=== PATIENT | female | born 1985 | race Caucasian/White ===

== ENCOUNTER 2016-11-06 11:40 | Outpatient (CLI) | payer BC | END 2016-11-06 11:41 | disposition home or self-care (01) | DX: M25.562 Pain in left knee (principal); M25.561 Pain in right knee; M79.675 Pain in left toe(s); M19.072 Primary osteoarthritis, left ankle and foot ==

== ENCOUNTER 2017-07-22 15:23 | Outpatient (CLI) | payer BC ==
[2017-07-22 13:18] LABS: BASOPHILS % (AUTO) 0.5 %; EOSINOPHILS # (AUTO) 0.1 10^3/uL (0.0-0.7); EOSINOPHILS % (AUTO) 1.2 %; HCT - HEMATOCRIT 38.8 % (37.0-47.0); HGB - HEMOGLOBIN 13.3 g/dL (12.0-16.0); LYMPHOCYTES # (AUTO) 1.5 10^3/uL (1.5-3.5); LYMPHOCYTES % (AUTO) 20.5 %; MEAN CORPUSCULAR HEMOGLOBIN 27.7 pg (27.0-31.0); MEAN CORPUSCULAR HGB CONC 34.2 g/dL (32.0-36.0); MEAN PLATELET VOLUME 9.1 fL (7.9-10.8); MONOCYTES # (AUTO) 0.5 10^3/uL (0.0-1.0); MONOCYTES % (AUTO) 7.2 %; NEUTROPHILS # (AUTO) 5.3 10^3/uL (1.5-6.6); NEUTROPHILS % (AUTO) 70.6 %; RED BLOOD COUNT 4.79 10^6/uL (4.20-5.40); RED CELL DISTRIBUTION WIDTH 12.5 % (12.0-15.0); UNCORRECTED WHITE BLOOD COUNT 7.5 x10^3/uL; WHITE BLOOD COUNT 7.5 x10^3/uL (4.8-10.8)
[2017-07-22 13:39] LABS: ALBUMIN/GLOBULIN RATIO 1.4 (1.0-2.2); BILIRUBIN,TOTAL 0.8 mg/dL (0.2-1.0); BUN - BLOOD UREA NITROGEN 14 mg/dL (6-20); CALCIUM 8.6 mg/dL (8.5-10.3); CARBON DIOXIDE - CO2 21 mmol/L (21-32); CHLORIDE 104 mmol/L (101-111); CHOL/HDL RATIO 4.1 (<4.4); CHOLESTEROL 155 mg/dL; CREATININE 0.8 mg/dL (0.4-1.0); GFR - MDRD 84 (>89); GLUCOSE 98 mg/dL (70-100); HDL CHOLESTEROL 38 mg/dL; LDL/HDL RATIO 2.7 (<4.4); POTASSIUM 3.7 mmol/L (3.5-5.0); SODIUM 134 mmol/L (135-145); TOTAL PROTEIN 7.1 g/dL (6.7-8.2); TRIGLYCERIDES 71 mg/dL; VLDL CHOLESTEROL 14 mg/dL
== END 2017-07-22 15:24 | disposition home or self-care (01) ==
LOC: LAB.N 15:23
PROVIDERS: ATTEND Family Medicine
DX: E66.9 Obesity, unspecified (principal); Z02.1 Encounter for pre-employment examination
CPT/HCPCS: 36415; 80053; 80061; 84443; 85025

== ENCOUNTER 2018-03-27 13:45 | Outpatient (CLI) | payer BC, MEDICAID | END 2018-03-27 13:46 | disposition home or self-care (01) | LOC: LAB.N 13:45 | PROVIDERS: ATTEND Nurse Practitioner | DX: Z33.1 Pregnant state, incidental (principal) | CPT/HCPCS: 36415; 84702 ==

== ENCOUNTER 2018-03-30 08:00 | Outpatient (CLI) | END 2018-03-30 08:01 | disposition home or self-care (01) ==

== ENCOUNTER 2018-04-07 14:12 | Outpatient (CLI) | payer MEDICAID ==
[2018-04-07 15:16] LABS: MUDS CUTOFF CONCENTRATIONS CUTOFF CONC BELOW:
[2018-04-07 15:50] LABS: AMPHETAMINE SCREEN,URINE NEGATIVE (NEGATIVE); BENZODIAZEPINES SCREEN, URINE NEGATIVE (NEGATIVE); COCAINE SCREEN URINE NEGATIVE (NEGATIVE); METHADONE SCREEN, URINE NEGATIVE (NEGATIVE); METHAMPHETAMINES SCREEN, URINE NEGATIVE (NEGATIVE); OPIATE SCREEN, URINE NEGATIVE (NEGATIVE); OXYCODONE SCREEN, URINE NEGATIVE (NEGATIVE); PROPOXYPHENE SCREEN, URINE NEGATIVE (NEGATIVE); TRICYCLIC ANTIDEPRESSANT,URINE NEGATIVE (NEGATIVE)
== END 2018-04-07 14:13 | disposition home or self-care (01) ==
LOC: LAB.R 14:12
PROVIDERS: ATTEND Nurse Practitioner Obstetrics & Gynecology
DX: Z36.9 Encounter for antenatal screening, unspecified (principal); Z11.3 Encounter for screening for infections with a predominantly sexual mode of transmission
CPT/HCPCS: 80306; 87491; 87591

== ENCOUNTER 2018-04-07 14:24 | Outpatient (CLI) | payer MEDICAID ==
[2018-04-07 14:54] LABS: BASOPHILS % (AUTO) 0.2 %; EOSINOPHILS # (AUTO) 0.1 10^3/uL (0.0-0.7); EOSINOPHILS % (AUTO) 0.6 %; HGB - HEMOGLOBIN 12.9 g/dL (12.0-16.0); LYMPHOCYTES # (AUTO) 1.7 10^3/uL (1.5-3.5); MEAN CORPUSCULAR HEMOGLOBIN 27.8 pg (27.0-31.0); MEAN CORPUSCULAR HGB CONC 33.6 g/dL (32.0-36.0); MEAN CORPUSCULAR VOLUME 82.6 fL (81.0-99.0); MEAN PLATELET VOLUME 9.3 fL (7.9-10.8); MONOCYTES # (AUTO) 0.5 10^3/uL (0.0-1.0); MONOCYTES % (AUTO) 4.8 %; NEUTROPHILS # (AUTO) 8.8 10^3/uL (1.5-6.6); NEUTROPHILS % (AUTO) 79.4 %; PLT - PLATELET COUNT 316 10^3/uL (130-450); RED BLOOD COUNT 4.65 10^6/uL (4.20-5.40); RED CELL DISTRIBUTION WIDTH 12.7 % (12.0-15.0); WHITE BLOOD COUNT 11.1 x10^3/uL (4.8-10.8)
[2018-04-07 15:19] LABS: BILIRUBIN,URINE NEGATIVE (NEGATIVE); GLUCOSE, URINE (UA) NEGATIVE (NEGATIVE); KETONES,URINE (UA) NEGATIVE (NEGATIVE); LEUKOCYTE ESTERASE, URINE NEGATIVE (NEGATIVE); NITRITE,URINE NEGATIVE (NEGATIVE); OCCULT BLOOD,URINE TRACE-LYSE (NEGATIVE); PH,URINE 6.5 PH (5.0-7.5); PROTEIN,URINE NEGATIVE (NEGATIVE); UROBILINOGEN,URINE 0.2 (NORMAL) E.U./dL (NORMAL)
[2018-04-07 15:25] LABS: CLARITY,URINE CLEAR (CLEAR)
[2018-04-07 15:49] LABS: BACTERIA,URINE Many /HPF (None Seen); RBC,URINE 0-5 /HPF (0-5); SQUAMOUS EPITHELIAL CELL,UR MANY Squamous (<= Few)
[2018-04-09 11:44] LABS: HEPATITIS B SURFACE ANTIGEN NON-REACTIVE (NON-REACTIVE); HEPATITIS C ANTIBODY NON-REACTIVE (NON-REACTIVE)
[2018-04-09 15:15] LABS: HIV AG/AB 4TH GEN NON-REACTIVE (NON-REACTIVE)
== END 2018-04-07 14:25 | disposition home or self-care (01) ==
LOC: LAB 14:24
PROVIDERS: ATTEND Nurse Practitioner Obstetrics & Gynecology
DX: Z36.9 Encounter for antenatal screening, unspecified (principal); Z11.3 Encounter for screening for infections with a predominantly sexual mode of transmission
CPT/HCPCS: 36415; 80306; 81001; 81599; 85025; 86592; 86762; 86803; 86850; 86900; 86901; 87340; 87389; 87491; 87591

== ENCOUNTER 2018-06-15 11:52 | Outpatient (CLI) | payer MEDICAID ==
--- NOTE | 2018-06-16 10:28 | Ultrasound Report ---
Reason: ENCOUNTER FOR SCREENING,UNSPECIFIED Procedure Date: 06/15/2018 Accession Number: [id number] / [id number] Procedure: US - OB Detailed Eval CPT Code: FULL RESULT: EXAM: COMPLETE OBSTETRICAL ULTRASOUND EXAM DATE: 06/15/2018 02:12 PM. CLINICAL HISTORY: OB detailed evaluation. anatomic survey. LMP is stated as 01/27/2018 but there is indication that it may be uncertain. COMPARISON: None. TECHNIQUE: Real-time sonographic evaluation of the fetus performed by the member services coordinator. Multiple employee representative static images were saved for review. DATING: Established EGA 19 weeks 6 days with ALBAN 11/03/2018 based on LMP. EGA 23 weeks 2 days with ALBAN 10/10/2018 based on the current ultrasound. GENERAL EVALUATION Bain . Cardiac activity: 142 bpm. movement: Visualized. Presentation: Variable. Placenta: Anterior, wrapping to the right. position. No evidence for previa. Umbilical cord: 3 vessel cord. Central placental cord origin (2.1 cm from the placental margin). Amniotic fluid: Normal, ANDRES 13.3 cm. MVP 4.5 cm. BIOMETRY Bi-Parietal Diameter (BPD): 5.5 cm, 22 weeks 5 days Head Circumference (HC): 20.8 cm, 22 weeks 6 days Abdominal Circumference (AC): 19.1 cm, 23 weeks 6 days Femur Length (FL): 4.3 cm, 23 weeks 6 days FL/HC 20.5 (16.9-19.7) HC/AC 1.09 (1.09-1.26) Estimated Weight: 620 gm, greater than 97th percentile for LMP. ANATOMY The intracranial structures, profile, face/nose/lips, spine, 4 chamber heart and outflow tracts, stomach, abdominal wall and cord insertion, diaphragm, kidneys, bladder, and extremities were visualized and demonstrate no abnormality. MATERNAL STRUCTURES Uterus: Unremarkable. Cervix: Long and closed. Transabdominal length 4.6 cm. Right ovary/adnexa: Unremarkable. Left ovary/adnexa: Unremarkable. Free fluid: None. IMPRESSION: 1. Bain live intrauterine with gestational age 23 weeks 2 days and ALBAN 10/10/2018 based on current ultrasound which is discordant with the clinical estimated ALBAN of 11/03/2018 based on the provided LMP. However, there is suggestion that the LMP may be uncertain. Clinical correlation is recommended. 2. Mildly increased FL/HC and borderline decreased HC/AC. 3. Normal anatomic survey. No anatomic abnormalities are detected at this time. RADIA
== END 2018-06-15 11:53 | disposition home or self-care (01) ==
LOC: DI 11:52
PROVIDERS: ATTEND Nurse Practitioner Obstetrics & Gynecology
DX: Z36.9 Encounter for antenatal screening, unspecified (principal)
CPT/HCPCS: 76811

== ENCOUNTER 2018-07-14 11:47 | Outpatient (CLI) | payer MEDICAID ==
[2018-07-14 13:48] LABS: HGB - HEMOGLOBIN 12.3 g/dL (12.0-16.0); MEAN CORPUSCULAR HEMOGLOBIN 28.4 pg (27.0-31.0); MEAN CORPUSCULAR VOLUME 83.4 fL (81.0-99.0); MEAN PLATELET VOLUME 9.1 fL (7.9-10.8); RED BLOOD COUNT 4.33 10^6/uL (4.20-5.40); RED CELL DISTRIBUTION WIDTH 13.2 % (12.0-15.0)
== END 2018-07-14 11:48 | disposition home or self-care (01) ==
LOC: LAB 11:47
PROVIDERS: ATTEND Nurse Practitioner Obstetrics & Gynecology
DX: Z36.9 Encounter for antenatal screening, unspecified (principal)
CPT/HCPCS: 36415; 82950; 85027; 86850

== ENCOUNTER 2018-07-24 07:52 | Outpatient (CLI) | payer MEDICAID | END 2018-07-24 07:53 | disposition home or self-care (01) | LOC: LAB 07:52 | PROVIDERS: ATTEND Registered Nurse | DX: R73.02 Impaired glucose tolerance (oral) (principal) | CPT/HCPCS: 36415; 82951; 82952 ==

== ENCOUNTER 2018-08-15 19:25 | Inpatient (IN) | payer MEDICAID ==
[2018-08-15 19:52] LABS: BILIRUBIN,URINE NEGATIVE (NEGATIVE); GLUCOSE, URINE (UA) NEGATIVE (NEGATIVE); KETONES,URINE (UA) NEGATIVE (NEGATIVE); LEUKOCYTE ESTERASE, URINE NEGATIVE (NEGATIVE); NITRITE,URINE NEGATIVE (NEGATIVE); OCCULT BLOOD,URINE NEGATIVE (NEGATIVE); PROTEIN,URINE NEGATIVE (NEGATIVE); UROBILINOGEN,URINE 0.2 (NORMAL) E.U./dL (NORMAL)
[2018-08-15 20:00] LABS: CLARITY,URINE CLEAR (CLEAR)
[2018-08-15] MEDS ORDERED: TERBUTALINE 1 MG/ML VIAL SUBQ ONE ×2 (20:05→22:43)
[2018-08-15] MEDS ORDERED: MORPHINE 10 MG/ML VIAL IVP ONE (20:18)
[2018-08-15] MEDS ORDERED: MORPHINE 10 MG/ML VIAL IM ONE (20:35)
[2018-08-15] MEDS ORDERED: MORPHINE 10 MG/ML VIAL IM SCH (20:38)
[2018-08-15 20:39] LABS: RUPTURE OF MEMBRANES PLUS NEGATIVE (NEGATIVE)
[2018-08-15] MEDS ORDERED: LACTATED RINGERS 1,000 ML IV SCH (21:11)
[2018-08-15] MEDS ORDERED: SODIUM CHLORIDE FLUSH 0.9% 10 ML SYRINGE ONE (21:25)
--- NOTE | 2018-08-15 22:24 | Ultrasound Report ---
Reason: check cervical length Procedure Date: 08/15/2018 Accession Number: [id number] / [id number] Procedure: US - OB Transvaginal CPT Code: FULL RESULT: EXAM: OB TRANSVAGINAL EXAM DATE: 08/15/2018 10:03 PM. CLINICAL HISTORY: Check cervical length. COMPARISONS: OB DETAILED EVAL 06/15/2018 12:07 PM. TECHNIQUE: Transvaginal ultrasound examination with static image documentation. CLINICAL DATES: Establish dates: EGA 32 weeks 0 days with ALBAN 10/10/2018. ASSESSMENT: Single living intrauterine fetus in cephalic presentation. heart rate 137 bpm. The cervix appears long and closed measuring 4.6 cm. IMPRESSION: 1. Long and closed cervix measuring 4.6 cm. RADIA
[2018-08-16 00:21] LABS: BASOPHILS % (AUTO) 0.1 %; HGB - HEMOGLOBIN 10.9 g/dL (12.0-16.0); LYMPHOCYTES # (AUTO) 0.8 10^3/uL (1.5-3.5); LYMPHOCYTES % (AUTO) 4.1 %; MEAN CORPUSCULAR HGB CONC 34.8 g/dL (32.0-36.0); MEAN CORPUSCULAR VOLUME 83.3 fL (81.0-99.0); MEAN PLATELET VOLUME 8.7 fL (7.9-10.8); MONOCYTES # (AUTO) 0.8 10^3/uL (0.0-1.0); NEUTROPHILS # (AUTO) 18.3 10^3/uL (1.5-6.6); NEUTROPHILS % (AUTO) 91.8 %; PLT - PLATELET COUNT 259 10^3/uL (130-450); RED BLOOD COUNT 3.76 10^6/uL (4.20-5.40); RED CELL DISTRIBUTION WIDTH 13.1 % (12.0-15.0)
[2018-08-16 00:29] LABS: PT - PROTHROMBIN TIME 11.4 secs (9.9-12.6)
[2018-08-16 00:34] LABS: BILIRUBIN,TOTAL 0.6 mg/dL (0.2-1.0); CALCIUM 8.8 mg/dL (8.5-10.3); CREATININE 0.7 mg/dL (0.4-1.0); TOTAL PROTEIN 6.1 g/dL (6.7-8.2)
[2018-08-16] MEDS ORDERED: CITRIC ACID/SODIUM CITRATE 15 ML UDC PO ONE (00:36)
[2018-08-16] MEDS ORDERED: ceFAZolin 2 GM/50 ML 2 GM/50 ML BAG IV STA (00:40)
[2018-08-16] MEDS: CITRIC ACID/SODIUM CITRATE 15 ML UDC PO ONE ×2 (00:45→09:46)
[2018-08-16] MEDS ORDERED: LACTATED RINGERS 1,000 ML IV ONE ×2 (00:54→02:00)
--- NOTE | 2018-08-16 01:18 | Ultrasound Report ---
Reason: labor, vaginal bleeding, check placenta Procedure Date: 08/16/2018 Accession Number: [id number] / [id number] Procedure: US - OB Limited CPT Code: FULL RESULT: EXAM: LIMITED OBSTETRICAL ULTRASOUND EXAM DATE: 08/16/2018 12:24 AM. CLINICAL HISTORY: labor, vaginal bleeding, check placenta. Clinical suspicion for placental abruption COMPARISON: OB TRANSVAGINAL 08/15/2018 9:35 PM OB DETAILED EVAL 06/15/2018 12:07 PM. TECHNIQUE: Real-time sonographic evaluation of the fetus performed by the yard goods salesperson. Multiple national account representative static images were saved for review. DATING: Established EGA 32 weeks 0 days with ALBAN 10/10/2018. GENERAL EVALUATION Bain . Cardiac activity: 140 bpm. movement: Visualized. Presentation: Cephalic. Placenta: Fundal position. Amniotic fluid: Normal. ANDRES 10.5 cm. MVP 3.4 cm. MATERNAL STRUCTURES There is a focal heterogeneous structure located at the peripheral placenta and placenta myometrium junction. This structure is partially hyperechoic and partially anechoic, measuring 3.5 x 2.3 x 4.6 cm. Structure was not seen on previous ultrasound images. IMPRESSION: 1. New intraplacental complex structure measuring 3.5 x 2.3 x 4.6 cm which may represent intraplacental hemorrhage or abruption given the clinical findings. 2. Normal amniotic fluid volume with ANDRES 10.5 cm. 3. heart rate 140 bpm. RADIA The above findings were discussed with Ob Nurse by Dr. Bal Amaro at 01:17 hrs on 08/16/18.
[2018-08-16] MEDS ORDERED: SUGAMMADEX 200 MG/2 ML VIAL IVP ONE ×2 (01:33→01:39)
[2018-08-16] MEDS ORDERED: ROCURONIUM 50 MG/5 ML VIAL IVP ONE (01:39)
[2018-08-16] MEDS ORDERED: KETOROLAC 30 MG/ML VIAL IVP ONE (01:39)
[2018-08-16] MEDS ORDERED: MORPHINE 10 MG/ML VIAL IVP ONE (01:39)
[2018-08-16] MEDS ORDERED: PROPOFOL 200 MG/20 ML VIAL IVP ONE (01:39)
[2018-08-16] MEDS ORDERED: METHYLERGONOVINE 0.2 MG/ML AMP IVP ONE (01:39)
[2018-08-16] MEDS ORDERED: ceFAZolin 2 GM/50 ML 2 GM/50 ML BAG IV ONE (01:39)
[2018-08-16] MEDS ORDERED: CARBOPROST TROMETHAMINE 250 MCG/ML AMP IM ONE (01:39)
[2018-08-16] MEDS ORDERED: fentaNYL 100 MCG/2 ML VIAL IVP ONE (01:39)
[2018-08-16] MEDS ORDERED: OXYTOCIN 10 UNIT/ML VIAL IV ONE (01:39)
[2018-08-16] MEDS ORDERED: ONDANSETRON 4 MG/2 ML VIAL IVP ONE (01:39)
[2018-08-16] MEDS ORDERED: SODIUM CHLORIDE FLUSH 0.9% 10 ML SYRINGE ONE (01:44)
[2018-08-16] MEDS ORDERED: DEXTROSE 10% 250 ML IV ONE (01:45)
--- NOTE | 2018-08-16 02:25 | XRAY Report ---
Reason: POST OP Procedure Date: 08/16/2018 Accession Number: [id number] / [id number] Procedure: XR - Abdomen 1 View X-Ray CPT Code: 16763 FULL RESULT: EXAM: ABDOMEN RADIOGRAPHY EXAM DATE: 08/16/2018 02:14 AM. CLINICAL HISTORY: POST OP. COMPARISON: None. TECHNIQUE: 1 view. FINDINGS: Bowel Gas Pattern: Nonspecific. Borderline caliber small bowel loops. Gas and stool in the colon. Other: Wound VAC projecting superior to the right hip. IMPRESSION: 1. Nonspecific gas pattern possibly representing mild ileus. 2. Wound VAC projecting lateral to the right hemipelvis. RADIA
[2018-08-16] MEDS ORDERED: HYDROmorphone 1 MG/ML CARPUJECT ONE ×2 (02:29→03:05)
[2018-08-16] MEDS ORDERED: MIDAZOLAM 2 MG/2 ML VIAL ONE (02:33)
[2018-08-16] MEDS ORDERED: ACETAMINOPHEN 1,000 MG/100 ML 100 ML IV ONE ×2 (02:34→03:20)
[2018-08-16] MEDS ORDERED: OXYTOCIN/SODIUM CHLORIDE 250 ML IV ONE (02:35)
[2018-08-16] MEDS ORDERED: SODIUM CHLORIDE FLUSH 0.9% 10 ML SYRINGE IVP PRN (02:35)
[2018-08-16] MEDS ORDERED: diphenhydrAMINE INJ 50 MG/ML VIAL IVP PRN (02:35)
[2018-08-16] MEDS ORDERED: ONDANSETRON 4 MG/2 ML VIAL IVP PRN (02:35)
--- NOTE | 2018-08-16 02:49 | OPERATIVE REPORT ---
Operative Report - General Admit Date: 08/16/18 Procedure Date: 08/16/18 Planned Procedure: PLTC/S Pre-Op Diagnosis: 32 weeks Abruption Procedure Performed: PLTC/S Post Op Diagnosis: Same - Procedure Note Primary Surgeon: Mike Simmons MD Secondary Surgeon: Aye BETHEA Anesthesia Provider: Kirit Castaneda Anesthesia Technique: General ET tube Pathology: Placenta Estimated Blood Loss (mL): 1,000 Drain/Tube Type: Other (Wound Vac) Complications: Large placental Abruption Live female infant apgars 6/6 - Other Other Information/Narrative: Dictation # [id number] H&P [id number]
[2018-08-16] MEDS ORDERED: IBUPROFEN 800 MG TABLET PO SCH (03:00)
[2018-08-16] MEDS ORDERED: HYDROmorphone PCA 20MG/100ML IV PRN ×4 (03:15→08:05)
--- NOTE | 2018-08-16 03:37 | PREOP HISTORY & PHYSICAL ---
DATE OF SERVICE: 08/16/2018 Physician: Mike Candelario MD IDENTIFICATION: Patient is a 33-year-old primigravida who is noted to be 32 weeks 2 days. I was called to see her because patient had developed bright red vaginal bleeding. This evening, she presented to Labor and Delivery with cramping. She had a UA which was negative, an FFN which was also negative, and an ultrasound which showed a long cervix. Group B strep swabs were taken. However, during her stay here, she developed red vaginal bleeding which was dark in color. This was noted to be fairly large, and she also developed uterine tenderness. An ultrasound felt to show what appeared to be an abruption. For this reason, she was taken for a stat section. It was felt that transfer to another institution via ambulance would not be judicious, and would not be safe for mother and . PAST MEDICAL HISTORY: Patient has migraines. She denies any hypertensive, diabetic, or pulmonary disease. PAST SURGICAL HISTORY: None. ALLERGIES: NONE KNOWN. CURRENT MEDICATIONS: vitamins. HABITS: She denies the use of alcohol, tobacco or street or addictive drugs. SOCIAL HISTORY: Patient is and her spouse is accompanying her at this time. PHYSICAL EXAMINATION GENERAL: Well-developed, well-nourished, white female. She was complaining of pain in the uterus. HEENT: Pupils are equal and round. Extraocular muscles are intact. CARDIOVASCULAR: Regular rate and rhythm. LUNGS: Lung elizondo are clear without rales or wheezes. BACK: There is no spinal or CVA tenderness noted. ABDOMEN: Exam shows a tender uterus, particularly on the lower area, more so on the right. Placenta was noted to be on the right-hand side. PELVIC: Examination revealed a large amount of dark red blood in the vagina. The cervix was felt to be closed. IMPRESSION: Thirty-two weeks 2 days' gestation with what appears to be an abruption. For this reason, she was taken for a stat section. Risks and benefits were explained to patient including those but not limited to bleeding, infection, injury to the pelvic organs which include the uterus, tubes, ovaries, bowel, bladder, and ureters. She is aware of the potential for deep venous thrombosis with pulmonary embolism, as well as postoperative adhesions which could cause pain, bowel obstruction, and infertility. She is also aware of the risk of prematurity and the risks the will be encountering because of this early delivery. TD: 08/16/2018 03:11 AGNES
--- NOTE | 2018-08-16 03:51 | OPERATIVE REPORT ---
DATE OF SERVICE: 08/16/2018 Physician: Mike Candelario MD PREOPERATIVE DIAGNOSES 1. Thirty-two weeks. 2. Placental abruption. POSTOPERATIVE DIAGNOSES 1. Thirty-two weeks. 2. Placental abruption. PROCEDURE: Emergency primary low transverse section. SURGEON: Mike Candelario MD. CAR KNOCKER: Aye Madera CRNA. ANESTHESIA PROVIDER: Kirit Santana MD. ANESTHETIC: General via endotracheal tube. FINDINGS: Live female infant, vertex presentation, nuchal cord x1 loose, vigorous . Evidence of a large retroplacental clot. There was also blood in the abdominal cavity upon entry. The amniotic fluid, however, was clear. PROCEDURE Patient was taken to the operating room and, following prep, endotracheal anesthesia was administered and then the patient was draped in the usual fashion. A Pfannenstiel incision was carried down through subcutaneous tissue to the fascia. The fascia was incised transversely then using both blunt and sharp dissection, it was freed of the rectus abdominis and pyramidalis. At this point, the rectus was split along the midline, and the peritoneum was entered high. Care was taken to avoid any injury to the infant. The incision was carried superior and inferior with Metzenbaum scissors. A bladder flap was then developed using both blunt and sharp dissection. A low transverse uterine incision was accomplished utilizing a #10 blade and bandage scissors and the finger-spread technique. Clear amniotic fluid was encountered. The head of the infant was noted to have a nuchal cord x1. It was delivered easily. The remainder of the infant was delivered without incident. The cord was then doubly clamped and divided, and the was handed to the nursery team that was standing by. A segment of cord was clamped and then set aside for cord blood gases. At this point, the placenta was delivered, and there was evidence of a large retroplacental clot. This was approximately 40% of the placenta. The uterus was then cleansed in internal portion, following wrapping it with a moist lap. Cervix was dilated with a ring forceps, and then the low transverse uterine incision was closed utilizing 0 Vicryl in a running locking suture with an imbricating layer of 0 Vicryl. There was one single area in the midline which was noted to be bleeding; this was treated with a dkegtp-tw-kuozm of #0 Vicryl. The incision appeared to be clean and dry at this time. The uterus was tipped forward and suctioned, then irrigated. The estimated blood loss was noted to be 1000 mL. The tubes and ovaries appeared to be free of disease. The gutters were irrigated, and no further clot or bleeding was noted. The peritoneum was closed utilizing 2-0 Vicryl, the rectus was reapproximated with mewlfb-it-secyyo of 2-0 Vicryl. Subcutaneous tissue was irrigated, no bleeding was noted, so the fascia was closed using a running #0 loop PDS. Subcutaneous tissue was inspected for bleeding, electrocautery was used for hemostasis, and then this was reapproximated utilizing 2-0 Vicryl. The incision itself was closed using 4-0 Monocryl subcuticular with Steri-Strips, with Mastisol used. A wound VAC was placed. At this point, the patient had a flat plate done to check for evidence of retained instruments or laps because the procedure was initiated without the counts being performed. There were no instruments or sponges noted in the abdominal cavity. At this point, the patient was woken up from her procedure. She tolerated it well. TD: 08/16/2018 03:09 AGNES
[2018-08-16] MEDS: MORPHINE 2 MG/ML CARPUJECT ONE ×2 (04:00→04:32)
[2018-08-16] MEDS: MORPHINE 10 MG/ML VIAL IVP PRN ×4 (04:00→07:32)
[2018-08-16] MEDS: SODIUM CHLORIDE FLUSH 0.9% 10 ML SYRINGE IVP SCH ×4 (04:02→07:32)
[2018-08-16 05:00] LABS: BASOPHILS % (AUTO) 0.1 %; HGB - HEMOGLOBIN 10.4 g/dL (12.0-16.0); MEAN CORPUSCULAR HEMOGLOBIN 28.3 pg (27.0-31.0); MEAN CORPUSCULAR HGB CONC 34.1 g/dL (32.0-36.0); MEAN CORPUSCULAR VOLUME 82.9 fL (81.0-99.0); MEAN PLATELET VOLUME 8.7 fL (7.9-10.8); MONOCYTES % (AUTO) 3.4 %; NEUTROPHILS % (AUTO) 93.5 %; PLT - PLATELET COUNT 255 10^3/uL (130-450); RED BLOOD COUNT 3.68 10^6/uL (4.20-5.40); RED CELL DISTRIBUTION WIDTH 13.2 % (12.0-15.0); WHITE BLOOD COUNT 24.3 x10^3/uL (4.8-10.8)
[2018-08-16 05:02] LABS: ABNORMAL LYMPHS % (MANUAL) 0 %
[2018-08-16 05:28] LABS: BAND NEUTROPHILS % (MANUAL) 11 %; DIFFERENTIAL COMMENT MANUAL DIFFERENTIAL; LYMPHOCYTES % (MANUAL) 4 %; NEUTROPHILS # (MANUAL) 22.4 10^3/uL (1.5-6.6); NEUTROPHILS % (MANUAL) 81 %; PLATELET ESTIMATE, MANUAL NORMAL (130-450,000) (NORMAL); RBC MORPHOLOGY (MULTIPLE) NORMAL APPEARANCE (NORMAL)
[2018-08-16] MEDS: LACTATED RINGERS 1,000 ML IV SCH ×2 (07:10→16:54)
[2018-08-16] MEDS ORDERED: MORPHINE 2 MG/ML CARPUJECT IVP PRN (07:59)
[2018-08-16] MEDS: KETOROLAC 30 MG/ML VIAL IV SCH ×4 (09:36→21:48)
[2018-08-16] MEDS: DOCUSATE SODIUM 100 MG CAPSULE PO SCH ×2 (09:44→12:17)
[2018-08-16] MEDS: SIMETHICONE CHEW 80 MG TABLET PO SCH ×2 (12:16→18:02)
[2018-08-16] MEDS: POTASSIUM CHLORIDE 20 MEQ TABLET PO SCH (12:59)
[2018-08-16 13:14] LABS: MUDS CUTOFF CONCENTRATIONS CUTOFF CONC BELOW:
[2018-08-16 13:51] LABS: AMPHETAMINE SCREEN,URINE NEGATIVE (NEGATIVE); BENZODIAZEPINES SCREEN, URINE NEGATIVE (NEGATIVE); COCAINE SCREEN URINE NEGATIVE (NEGATIVE); METHADONE SCREEN, URINE NEGATIVE (NEGATIVE); METHAMPHETAMINES SCREEN, URINE NEGATIVE (NEGATIVE); OPIATE SCREEN, URINE POSITIVE (NEGATIVE); OXYCODONE SCREEN, URINE NEGATIVE (NEGATIVE); PROPOXYPHENE SCREEN, URINE NEGATIVE (NEGATIVE); TRICYCLIC ANTIDEPRESSANT,URINE NEGATIVE (NEGATIVE)
[2018-08-17] MEDS: SIMETHICONE CHEW 80 MG TABLET PO SCH ×4 (00:22→17:28)
[2018-08-17] MEDS: DOCUSATE SODIUM 100 MG CAPSULE PO SCH ×3 (00:22→21:44)
[2018-08-17] MEDS: LACTATED RINGERS 1,000 ML IV SCH (02:13)
[2018-08-17] MEDS: IBUPROFEN 800 MG TABLET PO SCH ×3 (06:38→19:09)
[2018-08-17] MEDS: POTASSIUM CHLORIDE 20 MEQ TABLET PO SCH (07:56)
[2018-08-17] MEDS ORDERED: MAGNESIUM HYDROXIDE 2,400 MG/30 ML UDC PO PRN (08:37)
--- NOTE | 2018-08-17 08:43 | PROVIDER PROGRESS NOTE ---
Subjective - General Admit Date: 08/16/18 Procedure Date: 08/16/18 Post Op Days: 1 Procedure Performed: emergency PLT/S - Review of Systems Wound/Incisions: positive: Dressing dry and intact General: positive: Other (Pain 10) Gastrointestinal: positive: Flatus (will start on MOM) Musculoskeletal: positive: Back pain (Long standing) Objective - Patient Data Reviewed Vital Signs: Yes Vital Signs: Vital Signs x48h Temp Pulse Resp BP Pulse Ox 08/17/18 07:47 16 08/17/18 07:41 36.9 C 89 16 130/83 H 99 08/17/18 04:58 36.5 C 79 16 118/78 98 08/17/18 02:10 36.8 C 98 18 122/71 97 08/17/18 02:00 16 Weight: Weight 08/15/18 08/16/18 08/17/18 23:59 23:59 23:59 Weight (kg) 83.461 kg Intake & Output: Intake and Output Totals x24h 08/15/18 08/16/18 08/17/18 23:59 23:59 23:59 Intake Total 2845.333 931.667 Output Total 2475 2550 Balance 370.333 -1618.333 - Lab Results Lab Results: 08/16/18 04:10 08/16/18 00:07 Other Lab Results: Lab Results x24hrs 08/16/18 Range/Units 13:00 Urine Opiates Screen POSITIVE H (NEGATIVE) Ur Oxycodone Screen NEGATIVE (NEGATIVE) Urine Methadone Screen NEGATIVE (NEGATIVE) Ur Propoxyphene Screen NEGATIVE (NEGATIVE) Ur Barbiturates Screen NEGATIVE (NEGATIVE) Ur Tricyclics Screen NEGATIVE (NEGATIVE) Ur Phencyclidine Scrn NEGATIVE (NEGATIVE) Ur Amphetamine Screen NEGATIVE (NEGATIVE) U Methamphetamines Scrn NEGATIVE (NEGATIVE) U Benzodiazepines Scrn NEGATIVE (NEGATIVE) Urine Cocaine Screen NEGATIVE (NEGATIVE) U Cannabinoids Screen NEGATIVE (NEGATIVE) - Imaging Results Radiology Imaging: positive: Prelim report reviewed (Suspicous for Abruptioon) - Current Medications Current Medications: Current Medications Generic Name Dose Route Start Last Admin Trade Name Freq PRN Reason Stop Dose Admin Docusate Sodium 100 mg 08/16/18 09:00 08/17/18 07:56 Colace 100mg Capsule PO 100 mg BID JUNIOR Administration Lactated Ringer's 1,000 mls @ 100 mls/hr 08/16/18 03:00 08/17/18 02:13 Lr IV 100 mls/hr .Q10H JUNIOR Administration Ibuprofen 800 mg 08/17/18 03:00 08/17/18 06:38 Motrin PO 800 mg Q6H JUNIOR Administration Potassium Chloride 20 meq 08/16/18 13:00 08/17/18 07:56 K-Dur PO 20 meq DAILYWM JUNIOR Administration Simethicone 80 mg 08/16/18 06:00 08/17/18 07:56 Mylicon PO 80 mg TID JUNIOR Administration Sodium Chloride 10 ml 08/16/18 09:00 08/16/18 07:32 Normal Saline Flush 0.9% IVP 10 ml 0100,0900,1700 JUNIOR Administration - Physical Exam Wound/Incisions: positive: Dressing dry and intact General Appearance: positive: No acute distress, Alert Respiratory: positive: Chest non-tender, No respiratory distress, Breath sounds nml Cardiovascular: positive: Regular rate & rhythm, No murmur Abdomen: positive: Nml bowel sounds, Tenderness (As expected post op) Back: positive: Nml inspection, CVA tenderness (R), CVA tenderness (L) Extremities: negative: Calf tenderness, Jesus's sign/cords Impression/Plan - Problem List Problem List: POD #1 progressing well Baby has been extubated will Saline lock MOM
[2018-08-17] MEDS ORDERED: SODIUM CHLORIDE FLUSH 0.9% 10 ML SYRINGE ONE (09:05)
[2018-08-17] MEDS: oxyCODONE 5 MG TABLET PO PRN ×3 (13:24→21:44)
[2018-08-17] MEDS: ACETAMINOPHEN 325 MG TABLET PO PRN ×2 (17:27→21:44)
[2018-08-18] MEDS: IBUPROFEN 800 MG TABLET PO SCH ×3 (01:05→17:03)
[2018-08-18] MEDS: ACETAMINOPHEN 325 MG TABLET PO PRN ×3 (02:07→17:03)
[2018-08-18] MEDS: oxyCODONE 5 MG TABLET PO PRN ×3 (02:07→17:04)
[2018-08-18] MEDS: POTASSIUM CHLORIDE 20 MEQ TABLET PO SCH (08:49)
[2018-08-18] MEDS: SIMETHICONE CHEW 80 MG TABLET PO SCH ×2 (08:49→17:05)
[2018-08-18] MEDS: DOCUSATE SODIUM 100 MG CAPSULE PO SCH (08:49)
--- NOTE | 2018-08-18 13:18 | PROVIDER PROGRESS NOTE ---
Subjective - General Admit Date: 08/16/18 Procedure Date: 08/16/18 Post Op Days: 2 Procedure Performed: emergency PLT/S - Review of Systems Wound/Incisions: positive: Dressing dry and intact (good seal.) General: positive: No symptoms (Pain controled with oral meds. Breast feeding milk comming. pumping for baby. PJt lives in a trailer with out hot H2O. baby doing well off vent and CPAP. feeding to NG tube.), Other (Pain 4/10) Gastrointestinal: positive: Flatus (will start on MOM) Musculoskeletal: positive: Back pain (Long standing) Objective - Patient Data Reviewed Vital Signs: Yes Vital Signs: Vital Signs x48h Temp Pulse Resp BP Pulse Ox 08/18/18 11:00 36.6 C 80 16 122/79 98 08/18/18 08:30 36.6 C 86 18 118/77 98 08/18/18 05:44 37.0 C 85 18 124/71 98 Intake & Output: Intake and Output Totals x24h 08/16/18 08/17/18 08/18/18 23:59 23:59 23:59 Intake Total 2845.333 931.667 Output Total 2475 2550 Balance 370.333 -1618.333 - Lab Results Lab Results: 08/16/18 04:10 08/16/18 00:07 - Current Medications Current Medications: Current Medications Generic Name Dose Route Start Last Admin Trade Name Freq PRN Reason Stop Dose Admin Acetaminophen 650 mg 08/17/18 08:39 08/18/18 05:50 Tylenol PO 650 mg Q4HR PRN Administration Pain or Fever > 38C (100.4F) Docusate Sodium 100 mg 08/16/18 09:00 08/18/18 08:49 Colace 100mg Capsule PO 100 mg BID JUNIOR Administration Lactated Ringer's 1,000 mls @ 100 mls/hr 08/16/18 03:00 08/17/18 02:13 Lr IV 100 mls/hr .Q10H JUNIOR Administration Ibuprofen 800 mg 08/17/18 03:00 08/18/18 08:49 Motrin PO 800 mg Q6H JUNIOR Administration Oxycodone HCl 5 mg 08/17/18 08:39 08/18/18 05:50 Roxicodone PO 5 mg Q4HR PRN Administration PAIN Potassium Chloride 20 meq 08/16/18 13:00 08/18/18 08:49 K-Dur PO 20 meq DAILYWM JUNIOR Administration Simethicone 80 mg 08/16/18 06:00 08/18/18 08:49 Mylicon PO 80 mg TID JUNIOR Administration Sodium Chloride 10 ml 08/16/18 09:00 08/16/18 07:32 Normal Saline Flush 0.9% IVP 10 ml 0100,0900,1700 JUNIOR Administration - Physical Exam Wound/Incisions: positive: Dressing dry and intact General Appearance: positive: No acute distress, Alert Respiratory: positive: Chest non-tender, No respiratory distress, Breath sounds nml Cardiovascular: positive: Regular rate & rhythm, No murmur, No gallop Abdomen: positive: Non-tender, Mass (U-1) Back: negative: CVA tenderness (R), CVA tenderness (L) Extremities: negative: Calf tenderness, Jesus's sign/cords Impression/Plan - Problem List Problem List: S/P ELTC/S for Abruption. lives in sub standard conditions. would like to go and be with baby. deal: if she can find room at with baby will discharge if not will keep additional day. Discharge Meds oxycodone 5 mg Motrin 800 mg Colace discussed contraception. recomended travis.
[2018-08-18 14:53] LABS: BASOPHILS % (AUTO) 0.3 %; EOSINOPHILS # (AUTO) 0.2 10^3/uL (0.0-0.7); EOSINOPHILS % (AUTO) 1.7 %; HGB - HEMOGLOBIN 7.8 g/dL (12.0-16.0); LYMPHOCYTES # (AUTO) 1.2 10^3/uL (1.5-3.5); LYMPHOCYTES % (AUTO) 9.6 %; MEAN CORPUSCULAR HEMOGLOBIN 28.6 pg (27.0-31.0); MEAN CORPUSCULAR HGB CONC 34.1 g/dL (32.0-36.0); MEAN CORPUSCULAR VOLUME 83.8 fL (81.0-99.0); MONOCYTES # (AUTO) 0.5 10^3/uL (0.0-1.0); MONOCYTES % (AUTO) 3.7 %; NEUTROPHILS # (AUTO) 10.5 10^3/uL (1.5-6.6); NEUTROPHILS % (AUTO) 84.7 %; PLT - PLATELET COUNT 243 10^3/uL (130-450); RED BLOOD COUNT 2.73 10^6/uL (4.20-5.40); RED CELL DISTRIBUTION WIDTH 13.5 % (12.0-15.0); WHITE BLOOD COUNT 12.4 x10^3/uL (4.8-10.8)
[2018-08-18 17:00] VITALS: BP 125/84
--- NOTE | 2018-09-02 20:51 | DISCHARGE SUMMARY ---
Physician: Mike Candelario MD DATE OF ADMISSION: 08/16/2018 DATE OF DISCHARGE: 08/18/2018 DIAGNOSES 1. A 33-year-old, G1, P0, at 32.2 weeks. 2. Placental abruption. PROCEDURES 1. Ultrasound. 2. STAT primary low transverse PRESENTING HISTORY: The patient is a 33-year-old, G1, P0, who is 32 weeks EGA. She started her OB care at 13 weeks' gestation at the [facility]. She presented this evening with complaints of contractions. She had an FFN done as well as an ultrasound which showed a cervix long and closed. Her UA was negative. Her group B strep was taken. However, during her stay, she developed a large amount of red vaginal bleeding, which was dark in color. She developed uterine tenderness. An ultrasound showed what appeared to be a developing abruption. For this reason, she was taken for a STAT section as transport was not felt to be safe for her. LABORATORY DATA: The patient's initial white count was 20.0, hemoglobin was 10.9, hematocrit was 31.3, platelets were 257. PT 11.4, INR 1.0. Chemistries were normal with the exception of a low potassium of 2.9 and a mildly elevated glucose at 137. The patient's fibronectin was noted to be negative also. Followup CBC showed a white count of 24.3, hemoglobin was 10.4, hematocrit was 30.5, platelets 255. On the date of discharge, her white count had fallen to 12.4. Her hemoglobin fell to 7.8, hematocrit was 22.9. Her indices showed a normal MCV 83.8. HOSPITAL COURSE: The patient initially came into the hospital because of some contractions. She had a rule out labor protocol performed, which an FFN was negative and her labs were all normal. However, immediately after evaluation, she developed a large amount of red vaginal bleeding. Ultrasound was suggestive for an abruption so for this reason, she was taken for a STAT section. This was performed without difficulty. Her postoperative course was unremarkable. Her diet was advanced. She was continued to ambulate. She was eventually discharged to home with the plan that she would go see her baby, which had been transferred to [place], [place]. Her discharge medications were oxycodone 5 mg, Motrin 800 mg, and Colace. We discussed contraception and recommended the Mirena. The patient was instructed to follow up in the clinic in roughly 1 week for removal of her wound VAC. TD: 09/02/2018 12:41 AGNES
== END 2018-08-18 17:50 | disposition home or self-care (01) | DRG 788 ==
LOC: WFO 19:25 → FBP 19:26 → WFO 08-16 00:01 → FBP 08-16 00:05
PROVIDERS: ADMIT Obstetrics & Gynecology; ATTEND Obstetrics & Gynecology
PROC: 10D00Z1 Extraction of Products of Conception, Low, Open Approach (ICD-10-PCS; principal; 2018-08-16 01:00)
DX: O45.93 Premature separation of placenta, unspecified, third trimester (principal); O99.284 Endocrine, nutritional and metabolic diseases complicating childbirth; E87.6 Hypokalemia; Z3A.32 32 weeks gestation of pregnancy; Z37.0 Single live birth; Z59.1 Inadequate housing
CPT/HCPCS: 36415; 74018; 76815; 76817; 80053; 80306; 81001; 81003; 82731; 82803; 84112; 85025; 85384; 85610; 85730; 86850; 86900; 86901; 87081; 87086; 88307; 99214

== ENCOUNTER 2018-09-08 15:27 | Outpatient (CLI) | payer MEDICAID ==
[2018-09-08 15:51] LABS: BILIRUBIN,URINE NEGATIVE (NEGATIVE); GLUCOSE, URINE (UA) NEGATIVE (NEGATIVE); KETONES,URINE (UA) NEGATIVE (NEGATIVE); LEUKOCYTE ESTERASE, URINE NEGATIVE (NEGATIVE); NITRITE,URINE NEGATIVE (NEGATIVE); OCCULT BLOOD,URINE NEGATIVE (NEGATIVE); PH,URINE 6.5 PH (5.0-7.5); PROTEIN,URINE NEGATIVE (NEGATIVE); UROBILINOGEN,URINE 0.2 (NORMAL) E.U./dL (NORMAL)
[2018-09-08 15:58] LABS: CLARITY,URINE CLEAR (CLEAR)
[2018-09-08 16:03] LABS: BACTERIA,URINE None Seen /HPF (None Seen); RBC,URINE None Seen /HPF (0-5); SQUAMOUS EPITHELIAL CELL,UR FEW Squamous (<= Few)
== END 2018-09-08 15:28 | disposition home or self-care (01) ==
LOC: LAB 15:27
PROVIDERS: ATTEND Obstetrics & Gynecology
DX: R39.9 Unspecified symptoms and signs involving the genitourinary system (principal)
CPT/HCPCS: 81001; 87086

== ENCOUNTER 2019-11-22 09:32 | Outpatient (CLI) | payer MEDICAID ==
[2019-11-22 12:55] LABS: ALBUMIN 4.3 g/dL (3.2-5.5); ALBUMIN/GLOBULIN RATIO 1.2 (1.0-2.2); BILIRUBIN,TOTAL 0.5 mg/dL (0.2-1.0); CALCIUM 9.4 mg/dL (8.5-10.3); CREATININE 0.9 mg/dL (0.4-1.0); TOTAL PROTEIN 7.8 g/dL (6.7-8.2)
[2019-11-22 13:13] LABS: BASOPHILS % (AUTO) 0.4 %; EOSINOPHILS # (AUTO) 0.2 10^3/uL (0.0-0.7); EOSINOPHILS % (AUTO) 1.8 %; HGB - HEMOGLOBIN 13.1 g/dL (12.0-16.0); LYMPHOCYTES # (AUTO) 1.2 10^3/uL (1.5-3.5); LYMPHOCYTES % (AUTO) 13.9 %; MEAN CORPUSCULAR HGB CONC 32.6 g/dL (32.0-36.0); MEAN CORPUSCULAR VOLUME 82.7 fL (81.0-99.0); MEAN PLATELET VOLUME 10.8 fL (7.9-10.8); MONOCYTES # (AUTO) 0.6 10^3/uL (0.0-1.0); MONOCYTES % (AUTO) 6.7 %; NEUTROPHILS # (AUTO) 6.4 10^3/uL (1.5-6.6); NEUTROPHILS % (AUTO) 76.6 %; PLT - PLATELET COUNT 403 10^3/uL (130-450); RED BLOOD COUNT 4.86 10^6/uL (4.20-5.40); RED CELL DISTRIBUTION WIDTH 12.6 % (12.0-15.0); WHITE BLOOD COUNT 8.3 x10^3/uL (4.8-10.8)
[2019-11-22 13:59] LABS: FOLLICLE STIMULATING HORMONE 2.86 mIU/mL; LUTEINIZING HORMONE 16.69 mIU/mL
== END 2019-11-22 23:59 | disposition home or self-care (01) ==
LOC: LAB.N 09:32
PROVIDERS: ATTEND Nurse Practitioner Gerontology
DX: Z00.00 Encounter for general adult medical examination without abnormal findings (principal); R63.5 Abnormal weight gain; N93.9 Abnormal uterine and vaginal bleeding, unspecified
CPT/HCPCS: 36415; 80053; 82670; 83001; 83002; 84443; 85025

== ENCOUNTER 2019-12-03 09:10 | Outpatient (CLI) | payer MEDICAID ==
--- NOTE | 2019-12-05 06:58 | Ultrasound Report ---
Reason: MENSTRUAL BLEEDING, ABNORMAL Procedure Date: 12/03/2019 Accession Number: [id number] / [id number] Procedure: US - Pelvic w/Transvaginal CPT Code: Final Report FULL RESULT: EXAM: PELVIC ULTRASOUND EXAM DATE: 12/03/2019 10:38 AM. CLINICAL HISTORY: MENSTRUAL BLEEDING, ABNORMAL. COMPARISON: None. TECHNIQUE: Realtime transabdominal pelvic scan performed to identify the uterus and adnexa and as an overview of other pelvic structures, followed by transvaginal scan to provide greater detail of the uterus and adnexa, with static image documentation. FINDINGS: Uterus: 9.6 x 6.0 x 6.7 cm, volume 207 cc. Anteflex retroverted position. section scar seen. Trace anechoic fluid in the intrauterine cavity. Masses: None. Endometrium: 5 mm. Normal. Cervix: Nabothian cysts Right Ovary: 2.6 x 2.5 x 2.5 cm, volume 8.2 cc. Normal echotexture and blood flow. Left Ovary: 2.2 x 4.7 x 1.9 cm, volume 10.4 cc. Normal echotexture and blood flow. Free Fluid: None. Other: None. IMPRESSION: 1. section scar seen in the lower anterior uterine segment. 2. Trace fluid in the intrauterine cavity RADIA
== END 2019-12-03 09:11 | disposition home or self-care (01) ==
LOC: DI 09:10
PROVIDERS: ATTEND Nurse Practitioner Gerontology
DX: N93.9 Abnormal uterine and vaginal bleeding, unspecified (principal)
CPT/HCPCS: 76830; 76856